=== PATIENT | female | born 1990 | race Caucasian/White ===

== ENCOUNTER 2018-09-28 10:26 | Emergency (ER) | payer OTHER ==
[~2018-09-28] VITALS: Ht 162.6 cm; Wt 59.0 kg
[2018-09-28 11:50] LABS: *BILIRUBIN,URIN NEGATIVE (NEGATIVE); *BLOOD, URINE NEGATIVE (NEGATIVE); *CLARITY,URINE CLEAR (CLEAR); *COLOR,URINE YELLOW (YELLOW); *KETONES,URINE NEGATIVE (NEGATIVE); *UROBILINOGEN,URINE 0.2 E.U./dl (NORMAL); LEUKOCYTE ESTERASE ,URINE TRACE (NEGATIVE); NITRITE, URINE NEGATIVE (NEGATIVE); PH,URINE 6.5 (5.0-8.0); UGLUCOSE NEGATIVE (NEGATIVE)
[2018-09-28 11:55] LABS: *URINE HCG, QUAL NEGATIVE (NEGATIVE)
[2018-09-28 11:58] LABS: SQUAMOUS EPITHELIAL CELL,UR FEW /HPF (NONE SEEN)
[2018-09-28 11:59] LABS: BACTERIA,URINE FEW /HPF (NONE SEEN); RBC,URINE 0-3 /HPF (0-3)
--- NOTE | 2018-09-28 12:09 | NUR ---
Patient discharged to home in stable conditon with brisk steady gait. Written and verbal after care instructions given to patient. Patient verbalizes understanding of instructions.
== END 2018-09-28 12:10 | disposition home or self-care (01) ==
LOC: ER 10:26
DX: N39.0 Urinary tract infection, site not specified (principal); F41.9 Anxiety disorder, unspecified
CPT/HCPCS: 76856; 84703; A4663